=== PATIENT | female | born 1970 | race Caucasian/White ===

== ENCOUNTER 2019-07-12 00:25 | Emergency (ER) | payer SELFPAY ==
[~2019-07-12] VITALS: Ht 170.2 cm; Wt 81.6 kg
[2019-07-12] MEDS ORDERED: AMOX/K CLAV875 M1 PO (00:52)
[2019-07-12 01:35] VITALS: BP 93/57
== END 2019-07-12 01:35 | disposition home or self-care (01) | DRG 605 ==
LOC: ED 00:25
DX: S00.37XA Other superficial bite of nose, initial encounter (principal); S00.571A Other superficial bite of lip, initial encounter; W54.0XXA Bitten by dog, initial encounter